=== PATIENT | male | born 1950 | race Caucasian/White ===

== ENCOUNTER → 2021-02-09 | Outpatient (CLI) | payer OTHER ==
[~2021-02-09] MED LIST: HCTZ; NEXIUM40 MG PO; VALSART; [UNRECOGNIZED DRUG - OTHER]
== END | disposition home or self-care (01) ==
LOC: RAD 14:27
PROVIDERS: ATTEND Internal Medicine
DX: M51.34 Other intervertebral disc degeneration, thoracic region (principal); Z72.0 Tobacco use

== ENCOUNTER → 2022-09-02 | Outpatient (CLI) | payer OTHER | END | disposition home or self-care (01) | LOC: RAD 10:13 | PROVIDERS: ATTEND Orthopaedic Surgery | DX: M17.11 Unilateral primary osteoarthritis, right knee (principal); M25.761 Osteophyte, right knee; M25.861 Other specified joint disorders, right knee; R10.2 Pelvic and perineal pain ==